=== PATIENT | female | born 1980 | race Native Hawaiian/Other Pacific Islander ===

== ENCOUNTER → 2022-12-19 11:00 | Outpatient (RCR) | payer MEDICAID ==
[2022-12-09 09:23] VITALS: BP 120/82; PULSE 78; TEMP 98.8
--- NOTE | 2022-12-09 09:47 | NUR ---
pt arrived to [facility] for inital iron infusion. she refused benadryl pre-med. her VS were WNL and she continued to tolerate PO fluids through her infusion. she left unit at 0945 and was free from concerns and complaints at time of discharge.
[2022-12-11 09:22] VITALS: BP 129/89; PULSE 86; TEMP 98.7
[2022-12-13 09:01] VITALS: BP 121/86; PULSE 76; TEMP 98.6
[2022-12-16 09:15] VITALS: BP 120/83; PULSE 59; TEMP 98.5
--- NOTE | 2022-12-16 10:00 | NUR ---
pt discharges at approx 1000. she was here for her fourth iron infusion. she tolerated the infusion well and her VS remained within her normal limits. she verbalized that her next, and last, appointment is on . she was free of concerns and complaints at the time of discharge.
[~2022-12-19] VITALS: Ht 167.6 cm; Wt 121.8 kg
[2022-12-19 09:26] VITALS: BP 131/84; PULSE 52; TEMP 98.3
--- NOTE | 2022-12-19 09:53 | NUR ---
Pt tolerated infusion well. IV DC'd, site wrapped with coban. She exits dept with steady gait.
[~2022-12-19 11:00] MED LIST: VENOFER IV; ZYRTEC5 MG PO
== END | disposition home or self-care (01) ==
LOC: EUO 11-25 11:00
DX: D50.9 Iron deficiency anemia, unspecified (principal)
CPT/HCPCS: J1756